=== PATIENT | female | born 1990 | race Caucasian/White ===

== ENCOUNTER 2017-12-16 18:51 | Inpatient (IN) | payer MEDICAID ==
[~2017-12-16] VITALS: Ht 175.3 cm; Wt 90.7 kg
[~2017-12-16 18:51] MED LIST: ACET-3017 PO; CEPH500C24 PO; CYCL10TA29 PO; HYDR-4309 PO; IBUP-56 PO; IBUP600T22 PO; IBUP800T37 PO; KET10 PO; LOR5/325 PO; METH4TAB66 PO; NITR-105 PO; NITR-106 PO; PER PO; PRED20TA6 PO; PREN-127 PO; PROM-110 PO; TRAM-420 PO; TRIA15CR40 TP
[2017-12-16] MEDS ORDERED: LR(*) 1000 ML BAG 1,000 ML IV PRN (18:52)
[2017-12-16 19:06] VITALS: BP 121/80; Ht 175.3 cm; Wt 90.7 kg
[2017-12-16] MEDS ORDERED: LR(*) 1000 ML BAG 1,000 ML ONE (19:49)
[2017-12-16 20:03] LABS: PLATELET COUNT, AUTOMATED 236 K/uL (150-450)
[2017-12-16] MEDS: LR(*) 1000 ML BAG 1,000 ML IV PRN ×2 (20:18→20:44)
[2017-12-16 20:21] LABS: INR 0.95
[2017-12-16] MEDS ORDERED: APAP/HYDROCODONE 325/7.5 TAB PO PRN (21:20)
--- NOTE | 2017-12-16 21:32 | History & Physical ---
History of Present Illness Age of Patient: 26 : 1 Para or TPAL: 0 Estimated Gestational Age: 35.6 Chief Complaint abdominal pain and vaginal bleeding History of Present Illness Presents with report of blood tinged discharge today since this AM and then pains since 6 PM. Has not had thor leaking fluid but the bleeding did turn bright red. Good movement today. History of ectropion cervix and cervical polyp this with some episodes of bleeding earlier in the . She is A positive. Past Medical, Surgical, Family and Obstetric Histories reviewed. Please see ACOG chart. History Patient's Blood Type: A Positive Past Medical History: cervical polyp ADHD iron deficiency Allergies: Coded Allergies: mold (Verified Allergy, Severe, ANAPHYLAXIS, 07/16/17) iodine (Verified Allergy, Intermediate, RASH, 07/16/17) Penicillins (Unverified Allergy, Unknown, 07/16/17) adhesive (Unverified Allergy, Unknown, 07/16/17) latex (Unverified Allergy, Unknown, 07/16/17) Med Rec Home Meds Reported Medications Vits W-Ca,Fe,Fa(<1MG) ( VITAMINS) 1 Each Tablet, 1 EACH PO DAILY, TAB 06/12/17 Review of Systems All Systems Reviewed/Normal: Yes, Except as Noted Gastrointestinal: Abdominal Pain (as per HPI) Exam General Exam General Apperance: Alert/Awake/No Acute Distress Neuro: No Gross deficits Cardiovascular: Regular Rate and Rhythm Respiratory: No Respiratory Distress, Clear to Auscultation : Other (small pooling of bloody mucus, ferning negative) Vaginal Discharge/Fluid?: Bloody Show, Bloody Fluid, Small Amount Cervical Dialation: 0.5 Cervical Effacement (%): 50 Cervical Consistency: Moderate Cervical Position: Posterior Station: -3 Presentation: Vertex Uterine Contractions(Q min): 2 (irritable pattern) Uterine Contraction Strength: Mild Fetus Heart Tone Variabilty: Moderate FHT Accelerations: 15X15 FHT Category: I Medical Decision Making Data Points Result Diagram: 12/16/171949 Hematology Test 12/16/17 19:15 12/16/17 19:50 Urine Color Yellow Urine Clarity Cloudy Urine pH 5.0 pH (4.8-9.5) Urine Specific Allen 1.014 Urine Protein Negative mg/dL (NEGATIVE) Urine Glucose (UA) Negative mg/dL (NEGATIVE) Urine Ketones Negative mg/dL (NEGATIVE) Urine Blood Large (NEGATIVE) Urine Nitrite Negative (NEGATIVE) Urine Bilirubin Negative (NEGATIVE) Urine Urobilinogen Negative mg/dL (0.2-1.9) Urine Leukocyte Esterase Large (NEGATIVE) Urine RBC 84 /HPF (0-2/HPF) Urine WBC 101 /HPF (0-5/HPF) Urine Squamous Epithelial Cells Many /LPF (</=FEW) Urine Bacteria Few /HPF (NONE-FEW) Urine Mucus Few /HPF (NONE-FEW) Red Blood Count 4.94 M/uL (4.17-5.56) Mean Corpuscular Volume 82.0 fL (80.0-96.0) Mean Corpuscular Hemoglobin 27.3 pg (26.0-33.0) Mean Corpuscular Hemoglobin Concent 33.2 g/dL (32.0-36.0) Red Cell Distribution Width 13.2 % (11.5-14.5) Mean Platelet Volume 9.2 fL (7.2-11.1) Neutrophils (%) (Auto) 77.1 % (39.4-72.5) Lymphocytes (%) (Auto) 15.6 % (17.6-49.6) Monocytes (%) (Auto) 6.5 % (4.1-12.4) Eosinophils (%) (Auto) 0.4 % (0.4-6.7) Basophils (%) (Auto) 0.4 % (0.3-1.4) Nucleated RBC Relative Count (auto) 0.0 /100WBC Neutrophils # (Auto) 9.2 K/uL (2.0-7.4) Lymphocytes # (Auto) 1.9 K/uL (1.3-3.6) Monocytes # (Auto) 0.8 K/uL (0.3-1.0) Eosinophils # (Auto) 0.1 K/uL (0.0-0.5) Basophils # (Auto) 0.0 K/uL (0.0-0.1) Nucleated RBC Absolute Count (auto) 0.00 K/uL Prothrombin Time 12.7 seconds (12.0-14.4) Prothromb Time International Ratio 0.95 Activated Partial Thromboplast Time 30 seconds (23-35) Fibrinogen 513 mg/dL (169-449) D-Dimer Quantitative (PE/DVT) 1.27 ug/ml (0-0.50) Chemistry Test 12/16/17 19:15 12/16/17 19:50 Urine Color Yellow Urine Clarity Cloudy Urine pH 5.0 pH (4.8-9.5) Urine Specific Allen 1.014 Urine Protein Negative mg/dL (NEGATIVE) Urine Glucose (UA) Negative mg/dL (NEGATIVE) Urine Ketones Negative mg/dL (NEGATIVE) Urine Blood Large (NEGATIVE) Urine Nitrite Negative (NEGATIVE) Urine Bilirubin Negative (NEGATIVE) Urine Urobilinogen Negative mg/dL (0.2-1.9) Urine Leukocyte Esterase Large (NEGATIVE) Urine RBC 84 /HPF (0-2/HPF) Urine WBC 101 /HPF (0-5/HPF) Urine Squamous Epithelial Cells Many /LPF (</=FEW) Urine Bacteria Few /HPF (NONE-FEW) Urine Mucus Few /HPF (NONE-FEW) White Blood Count 12.0 k/uL (4.5-11.0) Red Blood Count 4.94 M/uL (4.17-5.56) Hemoglobin 13.5 g/dL (12.0-16.0) Hematocrit 40.5 % (34.0-47.0) Mean Corpuscular Volume 82.0 fL (80.0-96.0) Mean Corpuscular Hemoglobin 27.3 pg (26.0-33.0) Mean Corpuscular Hemoglobin Concent 33.2 g/dL (32.0-36.0) Red Cell Distribution Width 13.2 % (11.5-14.5) Platelet Count 236 K/uL (150-450) Mean Platelet Volume 9.2 fL (7.2-11.1) Neutrophils (%) (Auto) 77.1 % (39.4-72.5) Lymphocytes (%) (Auto) 15.6 % (17.6-49.6) Monocytes (%) (Auto) 6.5 % (4.1-12.4) Eosinophils (%) (Auto) 0.4 % (0.4-6.7) Basophils (%) (Auto) 0.4 % (0.3-1.4) Nucleated RBC Relative Count (auto) 0.0 /100WBC Neutrophils # (Auto) 9.2 K/uL (2.0-7.4) Lymphocytes # (Auto) 1.9 K/uL (1.3-3.6) Monocytes # (Auto) 0.8 K/uL (0.3-1.0) Eosinophils # (Auto) 0.1 K/uL (0.0-0.5) Basophils # (Auto) 0.0 K/uL (0.0-0.1) Nucleated RBC Absolute Count (auto) 0.00 K/uL Prothrombin Time 12.7 seconds (12.0-14.4) Prothromb Time International Ratio 0.95 Activated Partial Thromboplast Time 30 seconds (23-35) Fibrinogen 513 mg/dL (169-449) D-Dimer Quantitative (PE/DVT) 1.27 ug/ml (0-0.50) Coagulation Test 12/16/17 19:50 Prothrombin Time 12.7 seconds Prothromb Time International Ratio 0.95 Activated Partial Thromboplast Time 30 seconds Fibrinogen 513 mg/dL D-Dimer Quantitative (PE/DVT) 1.27 ug/ml Urinalysis Test 12/16/17 19:15 Urine Color Yellow Urine Clarity Cloudy Urine pH 5.0 pH (4.8-9.5) Urine Specific Allen 1.014 Urine Protein Negative mg/dL (NEGATIVE) Urine Glucose (UA) Negative mg/dL (NEGATIVE) Urine Ketones Negative mg/dL (NEGATIVE) Urine Blood Large (NEGATIVE) Urine Nitrite Negative (NEGATIVE) Urine Bilirubin Negative (NEGATIVE) Urine Urobilinogen Negative mg/dL (0.2-1.9) Urine Leukocyte Esterase Large (NEGATIVE) Urine RBC 84 /HPF (0-2/HPF) Urine WBC 101 /HPF (0-5/HPF) Urine Squamous Epithelial Cells Many /LPF (</=FEW) Urine Bacteria Few /HPF (NONE-FEW) Urine Mucus Few /HPF (NONE-FEW) Imaging Ultrasound/Imaging In room view of images and verbal report from tech: >3 kilos, normal XAVIER at 11 cm, no placental previa and no sign of rupture; vertex presentation. VTE Prophylasis: Adult Deep Vein Thrombosis/Pulmonary: No Pharmacological Contraindicati: Pt at Low Risk for VTE Mechanical Contraindications: Pt at Low Risk for VTE Assessment and Plan Problems: (1) Threatened labor, antepartum Assessment & Plan: By symptoms it is worrisome that she is either in early labor or AROM. I cannot conclusively determine rupture however with XAVIER of 11 seen on u/s and inconclusive results or unable to run amnisure due to the blood contamination. Therefore I recommend a period of observation and repeat exams to determine if she is in labor or not. Will treat pain tonight and reassess in the AM. KB running still but Im not expecting it to help me as it does not appear to be an abruption. ANGELA NIETO MD Dec 16, 2017 20:43
--- NOTE | 2017-12-16 21:43 | RADIOLOGY IMAGING REPORT ---
FACILITY: [facility] PATIENT NAME: Lesly Nur : 1990 MR: [id number] V: [id number] EXAM DATE: ORDERING PHYSICIAN: ANGELA NIETO TECHNOLOGIST: Location: [facility] Patient: Lesly Nur : 1990 Visit/Account:[id number] Date of Sevice: 12/16/2017 OB LIMITED HISTORY: Vaginal bleeding in . COMPARISON STUDIES: 07/16/2017 and studies dating to 06/12/2017. FINDINGS: Intrauterine gestations: One. presentation: Cephalic. heart rate: Regular at 149 bpm. Amniotic fluid index: 10 point 9 cm. Largest amniotic fluid pocket 4.0 cm. Placenta: Anterior without previa. Placental cord insertion is not demonstrated. No ultrasound eviden ce for abruption. Uterus: Gravid, otherwise normal. Maternal adnexa: Unremarkable. Cervix: Not visible due to shadowing from the head. Gestational Parameters: BPD: 9.1 cm 37 weeks/ 0 days HC: 32.4 cm 36 weeks/ 5 days AC: 33.0 cm 37 weeks/ 0 days FL: 7.1 cm 36 weeks/ 3 days Average ultrasound age (AUA): 36 weeks 6 days Estimated gestational age by LMP of 04/09/2017: 35 weeks 6 days, corresponding to BERTA 01/14/2018 Estimated weight (EFW): 3012 grams +/- 440 grams EFW for AUA: 74 th percentile Anatomic Survey: Not performed as this was a limited examination for vaginal bleeding. There is a normal four-chamber heart view. IMPRESSION: 1. Single live intrauterine gestation; estimated ultrasound age 36 weeks 6 days, corresponding to BERTA 01/07/2018, 7 days ahead of the BERTA based on LMP. 2. Anterior placenta without previa. No ultrasound evidence for abruption. Report Dictated By: Tammy Shin at 12/16/2017 9:33 PM Report E-Signed By: Tammy Shin at 12/16/2017 9:38 PM [id number]
[2017-12-16] MEDS ORDERED: CALC-521 PO (22:16)
[2017-12-17] MEDS ORDERED: CLINDAMYCIN 900 MG/6 ML 900 MG in NS(*) 0.9% 100 ML BAG 100 ML IVPB SCH (03:20)
[2017-12-17] MEDS ORDERED: VANCOMYCIN 1 GM ADDVIAL 1 GM in NS(*) 0.9% 250 ML ADDVAN BAG 250 ML IVPB SCH (03:25)
[2017-12-17] MEDS: fentaNYL CITR 100 MCG/2 ML AMP IVP PRN ×6 (03:29→09:00)
[2017-12-17] MEDS: LR(*) 1000 ML BAG 1,000 ML IV PRN ×2 (03:56→13:56)
[2017-12-17] MEDS: ONDANSETRON 4 MG/2 ML VIAL IVP PRN ×2 (03:56→15:40)
[2017-12-17] MEDS: VANCOMYCIN(*) 1 GM VIAL 2 GM in NS(*) 0.9% 500 ML BAG 500 ML IVPB SCH ×2 (05:16→12:39)
--- NOTE | 2017-12-17 07:35 | Labor Progress Note ---
Labor Subjective Progress Notes Subjective [id number] contractions Labor Pain: Moderate Labor Objective Vital Signs Vital Signs Date Time Temp Pulse Resp B/P (MAP) Pulse Ox O2 Delivery O2 Flow Rate FiO2 12/16/17 19:06 98.4 123 14 121/80 (94) 97 Room Air Cervical Dialation: 2 Cervical Effacement (%): 90 Cervical Consistency: Soft Cervical Position: Mid Station: 0 Presentation: Vertex Uterine Contractions(Q min): 3 Uterine Contraction Strength: Moderate Fetus Heart Tones: 130 FHT Category: I Other Result Diagram: 12/16/171949 Assessment and Plan Problems: (1) Threatened labor, antepartum Assessment & Plan: suspect early labor, will monitor ALLIE Weeks MD Dec 17, 2017 07:35
[2017-12-17] MEDS ORDERED: DLR(*) 1000 ML BAG 1,000 ML IV PRN (07:37)
[2017-12-17] MEDS ORDERED: FAMOTIDINE(*) 20MG/50ML PREMIX 50 ML IVPB PRN (07:37)
[2017-12-17] MEDS ORDERED: METOCLOPRAMIDE 10 MG/2 ML SDV IVP PRN (07:40)
[2017-12-17] MEDS ORDERED: LIDO/EPI 2% MPF 1:200,000 20ML EPI PRN (07:45)
[2017-12-17] MEDS ORDERED: fentaNYL CITR 100 MCG/2 ML AMP IT PRN (07:45)
[2017-12-17] MEDS ORDERED: LIDOCAINE/PF 2% 200MG/10ML AMP 200 MG/10 ML AMPUL EPI PRN (07:45)
[2017-12-17] MEDS ORDERED: BUPIVACAINE 0.5% INJ 30ML VIAL EPI PRN (07:45)
[2017-12-17] MEDS ORDERED: BUPIVACAINE 0.25% MPF INJ EPI PRN (07:45)
[2017-12-17] MEDS ORDERED: FENTANYL/ROPIVACAINE 100 ML BAG EPI PRN (07:45)
[2017-12-17] MEDS ORDERED: EPIDURAL KEYS XX PRN (07:45)
[2017-12-17] MEDS ORDERED: DLR(*) 1000 ML BAG 1,000 ML IV ONE (07:46)
--- NOTE | 2017-12-17 10:23 | Anesthesia OB Pre-Anes Eval ---
History of Present Illness Anesthesia Start Date: Dec 17, 2017 Anesthesia Start Time: 09:24 OB Anesthesia Diagnosis: spontaneous labor EDC: Jan 14, 2018 : 1 Para: 0 Vital Signs: Vital Signs 12/16/17 19:06 Temp 98.4 Pulse 123 Resp 14 B/P (MAP) 121/80 (94) Pulse Ox 97 O2 Delivery Room Air Pain Ratin Heart Tones: 141 Result Diagram: 12/16/17 1950 Height (Inches): 69.00 Weight (Pounds): 200 BMI Calculated: 29.53 Past Medical History Medical History: no pertinent history Surgical History: no surgical history Attended Childbirth Classes?: No Hx Anesthesia Reactions: No Hx Family Anesthesia Reaction: No Current Medications: pain medication Home Meds Reported Medications Calcium Carbonate (TUMS) 300 Mg Tab.chew, 300 MG PO, TAB.CHEW 12/16/17 Vits W-Ca,Fe,Fa(<1MG) ( VITAMINS) 1 Each Tablet, 1 EACH PO DAILY, TAB 06/12/17 Allergies: Coded Allergies: mold (Verified Allergy, Severe, ANAPHYLAXIS, 07/16/17) iodine (Verified Allergy, Intermediate, RASH, 07/16/17) Penicillins (Unverified Allergy, Unknown, 07/16/17) adhesive (Unverified Allergy, Unknown, 07/16/17) latex (Unverified Allergy, Unknown, 07/16/17) Anesthesia OB ROS Neurological: No migraines/headaches, No seizures, No neuropathy, No other ENT: Tongue ring, Other (lip studs) Pulmonary: No asthma, No smoker (pks/day/yrs), No other Airway Class: lll Cardiovascular ROS: No edema, No arrhythmia, No other GI ROS: clear liquids Last Solids Date: Dec 16, 2017 Last Solids Time: 17:00 ROS: No Herpes, No STD(s), No Liver Disease, No Renal Disease, No Other Endocrine ROS: No diabetes, No gestational diabetes, No thyroid disorder, No other Musculoskeletal ROS: No low back pain, No low back injury, No scoliosis, No other ASA Classification: 2 Assessment and Plan Anesthesia Plan: ELIEZER TORRES CRNA Dec 17, 2017 10:23
--- NOTE | 2017-12-17 10:28 | Procedure Note ---
Anesthetic Placement Note Anesthesia Plan: CSE Permit for Anesthesia Signed: Yes Anesthesia Technique: Patient Sitting Anesthesia Prep: Chlorhexidine Interspace: L 3-4 Local Anesthetic: 1% Lidocaine Amount Local - cc's: 3 Anesthesia Needle: 17g Touhy/Schliff Anesthesia Attempts: 1 Loss of Resistance: Normal Saline Depth of VARGHESE (cm): 5 Epidural Needle Placement: No CSF, No Blood, No Parasthesia Intrathecal Needle: 27 Gauge Pencan Cerebral Spinal Fluid: Yes, Clear Catheter Insertion (cm): 9 Catheter Type: Neal - Spring Wound Epidural Dressing: Tegaderm, Tape, Other (papertape) Anesthesia Tray: Lot Number ([id number]), Expiration Date (06/30), Reference Number ([id number]) Anesthesia Medications: Intrathecal Dose: mcg Fentanyl (10), mg Marcaine MPF (2.5), Time (0938) Epidural Test Dose: 1.5 Lido/Epi (1:200,000), Dose - mL (3), Time (0941) Epidural Infusion: 0.2% Ropivicaine, With Fentanyl 2mcg/ml, Start Time: (1002) Epidural Pump Setting: Bolus Dose - mL (6), Lockout - Minutes (20), Maintenance Rate - mL/hr (6), Maximum per Hour - mL (24) Complications: None ELIEZER WEEKS CRNA Dec 17, 2017 10:28
--- NOTE | 2017-12-17 10:40 | Labor Progress Note ---
Labor Subjective Progress Notes Subjective comfortable with epidural Vaginal Discharge/Fluid: Clear Fluid Labor Pain: Comfortable Labor Objective Vital Signs Vital Signs Date Time Temp Pulse Resp B/P (MAP) Pulse Ox O2 Delivery O2 Flow Rate FiO2 12/16/17 19:06 98.4 123 14 121/80 (94) 97 Room Air Cervical Dialation: 4 Cervical Effacement (%): 94 Cervical Consistency: Soft Station: +1 Presentation: Vertex Uterine Contractions(Q min): 3 Uterine Contraction Strength: Moderate Fetus Heart Tones: 140 Heart Tone Variabilty: Moderate FHT Category: I Other Result Diagram: 12/16/171949 Assessment and Plan Problems: (1) Threatened labor, antepartum (2) labor in third trimester Assessment & Plan: has had cervical change is more comfortable with epidural, clear fluid Problem Qualifiers (1) labor in third trimester: Fetus number: single or unspecified fetus ALLIE BECKWITH MD Dec 17, 2017 10:40
[2017-12-17] MEDS ORDERED: OXYTOCIN 30 UNIT/D5LR 500 ML 500 ML IV PRN ×2 (11:07→12:59)
--- NOTE | 2017-12-17 12:30 | Labor Progress Note ---
Labor Subjective Progress Notes Subjective comfortable with epidural Vaginal Discharge/Fluid: Clear Fluid Labor Pain: Comfortable Labor Objective Vital Signs Vital Signs Date Time Temp Pulse Resp B/P (MAP) Pulse Ox O2 Delivery O2 Flow Rate FiO2 12/16/17 19:06 98.4 123 14 121/80 (94) 97 Room Air Cervical Dialation: 4 Cervical Effacement (%): 100 Cervical Consistency: Soft Cervical Position: Mid Station: +1 Presentation: Vertex Fetus Estimated Weight(grams): 140 FHT Category: I Other Result Diagram: 12/16/17 1950 Assessment and Plan Problems: (1) Threatened labor, antepartum (2) labor in third trimester Assessment & Plan: unable to monitor contractions externally, IUPC placed Problem Qualifiers (1) labor in third trimester: Fetus number: single or unspecified fetus ALLIE BECKWITH MD Dec 17, 2017 12:30
[2017-12-17] MEDS ORDERED: TERBUTALINE SULF 1 MG/ML VIAL SUBQ PRN (13:00)
[2017-12-17] MEDS ORDERED: NS(*) 0.9% 1000 ML BAG 1,000 ML PV PRN (14:39)
[2017-12-17] MEDS ORDERED: NS(*) 0.9% 1000 ML BAG 1,000 ML ONE (14:46)
[2017-12-17] MEDS ORDERED: METHYLERGONOVINE MAL 0.2MG/ML ONE (16:04)
[2017-12-17] MEDS ORDERED: HYDROmorphone HCL 2 MG TAB PO PRN (16:15)
[2017-12-17] MEDS ORDERED: MAGNESIUM HYDROXIDE* 30ML UDCP PO PRN (16:15)
[2017-12-17] MEDS ORDERED: ACETAMINOPHEN 325 MG TAB PO PRN (16:15)
[2017-12-17] MEDS ORDERED: HYDROCORTISONE 2.5% CR 30GM TB PR PRN (16:15)
[2017-12-17] MEDS ORDERED: LANOLIN OINT 7 GM TUBE TP PRN (16:15)
--- NOTE | 2017-12-17 16:17 | OB Delivery Note ---
Delivery Note Vaginal Delivery Type: Spont. Vaginal Delivery Delivery Date: Dec 17, 2017 Delivery Time: 15:50 Estimated Gestational Age(wks): 36.0 Delivery Anesthesia: Epidural Infant Sex: Female Weight (gms): 2604 Apgars: 1 Minute (8), 5 Minute (8) Repair Needed: Laceration, Superficial, Labial Estimated Blood Loss: 400 Notes: pprom, ab pain, early PTL progressed to 3 cm, received epidural and then augmented when slowed progress. progressed to complete, pushed effectively delivered without complications, superficial lacs repaired with3-0 vicryl Bus Matron in Attendence: No Copies to: ALLIE BECKWITH MD, JOHN MD Dec 17, 2017 16:17
--- NOTE | 2017-12-17 16:22 | Anesthesia Progress Note ---
Progress/Maintenance Anesthesia Note Date: Dec 17, 2017 Anesthesia Note Time: 13:00 Pain Intensity: 0 Pump: On Pump Rate (ML/HR): 6 Motor Level: Bending Knees-Bilateral Dilatation: 7 Position: Right ELIEZER WEEKS CRNA Dec 17, 2017 16:22
--- NOTE | 2017-12-17 16:23 | Anesthesia Progress Note ---
Assessment and Plan Anesthesia Plan: CSE Anesthesia Stop Day: Dec 17, 2017 Anesthesia Stop Time: 16:05 Epidural Catheter Removal: Removed Catheter Intact, Yes, Removed by: (Namrata HE) Removal Date: Dec 17, 2017 Removal Time: 16:20 Condition Vital Signs 12/16/17 19:06 Temp 98.4 Pulse 123 Resp 14 B/P (MAP) 121/80 (94) Pulse Ox 97 O2 Delivery Room Air ELIEZER WEEKS CRNA Dec 17, 2017 16:23
[2017-12-17] MEDS ORDERED: IBUPROFEN 800 MG TAB PO SCH (17:00)
[2017-12-17] MEDS ORDERED: OXYTOCIN 10 UNIT/ML SDV ONE (17:16)
[2017-12-17 19:00] VITALS: BP 110/76
[2017-12-17] MEDS: BENZOCAINE 20% 60 ML BTL TP PRN (19:22)
[2017-12-17] MEDS: GLYCERIN/WITCH HAZEL LEAF 1 PK TP PRN (19:22)
[2017-12-17] MEDS: DOCUSATE CALCIUM 240 MG CAP PO SCH (20:23)
[2017-12-17 23:10] VITALS: BP 115/66
[2017-12-18] VITALS (7 sets, daily range): BP systolic 100–119; BP diastolic 58–70
[2017-12-18] MEDS: IBUPROFEN 800 MG TAB PO SCH ×3 (03:03→20:52)
--- NOTE | 2017-12-18 08:40 | OB/GYN Progress Note ---
OB Subjective Progress Notes Subjective Pain controlled, Tolerating diet and activity. Baby . Normal lochia. GI: POS Flatus, NEG Nausea, NEG Vomiting : Voiding Well Pain: Mild OB Objective Physical Exam Vital Signs Date Time Temp Pulse Resp B/P (MAP) Pulse Ox O2 Delivery O2 Flow Rate FiO2 12/18/17 07:32 98.1 77 18 107/60 (76) 12/18/17 03:00 Room Air 12/17/17 19:00 97 General Appearance: Alert/Awake/No Acute Distress Neurological: No Gross deficits Cardiovascular: Regular Rate and Rhythm Respiratory: No Respiratory Distress, Clear to Auscultation Abdomen: Fundus Firm Extremities: No Edema Result Diagram: 12/18/17 0619 Assessment and Plan Problems: (1) Threatened labor, antepartum (2) labor in third trimester (3) care following vaginal delivery Assessment & Plan: Pain controlled, Tolerating diet and activity. Baby . Normal lochia. Copies to: ALLIE BECKWITH MD Problem Qualifiers (1) labor in third trimester: Fetus number: single or unspecified fetus ALLIE BECKWITH MD Dec 18, 2017 08:40
[2017-12-18] MEDS ORDERED: IBUP800T37 PO (08:54)
[2017-12-18] MEDS ORDERED: HYDR2TAB4 PO (08:54)
--- NOTE | 2017-12-18 08:56 | OB/GYN Discharge Summary ---
Discharge Summary Reason for Hosp/Final Diag: (1) Threatened labor, antepartum (2) labor in third trimester (3) care following vaginal delivery Hospital Course & Plan: PTL and delivery, on day 2, Pain controlled, Tolerating diet and activity. Baby . Normal lochia. Lates Vital Signs Vital Signs Date Time Temp Pulse Resp B/P (MAP) Pulse Ox O2 Delivery O2 Flow Rate FiO2 12/18/17 07:32 98.1 77 18 107/60 (76) 12/18/17 03:00 Room Air 12/17/17 19:00 97 Weight (Pounds): 200 Result Diagram: 12/18/17618 Condition: Improved Discharge: Home, Self Senior Care Meds Active Scripts Ibuprofen (IBUPROFEN) 800 Mg Tablet, 1 TAB PO Q8H, #30 TAB 0 Refills Take with food every 8 hours. Prov:ALLIE STOLL MD 12/18/17 Hydromorphone Hcl (HYDROMORPHONE HCL) 2 Mg Tablet, 2-4 MG PO Q4H for PAIN, #20 TAB 0 Refills Prov:ALLIE STOLL MD 12/18/17 Reported Medications Calcium Carbonate (TUMS) 300 Mg Tab.chew, 300 MG PO, TAB.CHEW 12/16/17 Vits W-Ca,Fe,Fa(<1MG) ( VITAMINS) 1 Each Tablet, 1 EACH PO DAILY, TAB 06/12/17 Follow up with: Dr. Stoll [phone] Follow up in: 6 wks PP or PO Discharge Diet: As Tolerates Discharge Activity: Pelvic Rest Copies to: ALLIE STOLL MD Problem Qualifiers (1) labor in third trimester: Fetus number: single or unspecified fetus ALLIE STOLL MD Dec 18, 2017 08:56
[2017-12-18] MEDS ORDERED: DIPHTH/TETANUS/ACEL. PERTUSSIS IM ONLY ONE (09:00)
[2017-12-18] MEDS ORDERED: INFLUENZA VIRUS VAC 0.5 ML SYR IM ONLY ONE (09:00)
[2017-12-18] MEDS ORDERED: MEASLES,MUMP,RUBELLA VAC 0.5ML SUBQ ONE (09:00)
--- NOTE | 2017-12-18 12:53 | Anesthesia Post Eval Note ---
Anesthesia Post Eval Note Vital Signs 12/17/17 12/18/17 12/18/17 19:00 03:00 07:32 Temp 98.1 Pulse 77 Resp 18 B/P (MAP) 107/60 (76) Pulse Ox 97 O2 Delivery Room Air Pt able to participate in Eval: Yes Cardiovascular Status: Satisfactory Respiratory Status: Satisfactory Pain Managment: Satisfactory PO Nausea/Vomiting: Satisfactory Temperature Management: Satisfactory Mental Status: Satisfactory, Alert, Oriented X3 Post-Op Hydration Status: Satisfactory, Tolerating PO Well, Voiding w/o Difficulty Anesthesia Type: ELIEZER TORRES CRNA Dec 18, 2017 12:53
[2017-12-18] MEDS: DOCUSATE CALCIUM 240 MG CAP PO SCH ×2 (12:57→20:52)
[2017-12-18] MEDS: MULTIVITAMINS (PRENATAL) TAB PO SCH (12:57)
[2017-12-19 02:30] VITALS: BP 113/69
[2017-12-19] MEDS: IBUPROFEN 800 MG TAB PO SCH (04:25)
--- NOTE | 2017-12-19 07:08 | OB/GYN Progress Note ---
OB Subjective Progress Notes Subjective Doing good this morning. Reports lochia appropriate. Tolerating PO intake. Voiding with out any difficulty. Breast and bottle feeding. Pain controlled with po intake. Desires to be discharged home if given the opportunity. GI: NEG Nausea, NEG Vomiting, NEG Flatus, NEG Bowel Movement : Voiding Well, Vaginal Bleeding, Scant Pain: Mild, Tolerating PO Pain Meds Neurological: No Headache, No Other Eyes: No Visual Disturbances OB Objective Physical Exam Vital Signs Date Time Temp Pulse Resp B/P (MAP) Pulse Ox O2 Delivery O2 Flow Rate FiO2 12/19/17 02:30 97.6 81 16 113/69 (84) 12/18/17 22:50 Room Air 12/17/17 19:00 97 General Appearance: Alert/Awake/No Acute Distress Neurological: No Gross deficits Eyes: Normal Extraocular Movement & Vison, PERRLA ENT: Normal Neck: No Masses Cardiovascular: Normal Rhythm & Peripheral Pulses, Regular Rate and Rhythm Respiratory: No Respiratory Distress, Clear to Auscultation Abdomen: Fundus Firm, Non-Tender Extremities: No Edema Result Diagram: 12/18/17 0619 Assessment and Plan PRODUCTION LINE OPERATOR Assessment: Stable Problems: (1) Threatened labor, antepartum Status: Resolved (2) labor in third trimester Status: Resolved (3) care following vaginal delivery Assessment & Plan: Plan for d/c home today. Pelvic rest cautions given. RTC in 6 weeks for post exam. Problem Qualifiers (1) labor in third trimester: Fetus number: single or unspecified fetus DINAH MONTERROSO DO Dec 19, 2017 07:08
[2017-12-19 07:15] VITALS: BP 128/81
[2017-12-19] MEDS: BENZOCAINE 20% 60 ML BTL TP PRN (07:16)
[2017-12-19] MEDS: GLYCERIN/WITCH HAZEL LEAF 1 PK TP PRN (07:16)
[2017-12-19] MEDS: DOCUSATE CALCIUM 240 MG CAP PO SCH (08:52)
[2017-12-19] MEDS: MULTIVITAMINS (PRENATAL) TAB PO SCH (08:52)
== END 2017-12-19 10:34 | disposition home or self-care (01) | DRG 775 ==
LOC: OBSVTOIN 18:51 → OB 18:51
PROVIDERS: ADMIT Obstetrics & Gynecology; ATTEND Obstetrics & Gynecology
PROC: 10E0XZZ Delivery of Products of Conception, External Approach (ICD-10-PCS; principal; 2017-12-17)
PROC: 0HQ9XZZ Repair Perineum Skin, External Approach (ICD-10-PCS; 2017-12-17)
PROC: 10H07YZ Insertion of Other Device into Products of Conception, Via Natural or Artificial Opening (ICD-10-PCS; 2017-12-17)
DX: O60.14X0 Preterm labor third trimester with preterm delivery third trimester, not applicable or unspecified (principal); Z37.0 Single live birth; O70.0 First degree perineal laceration during delivery; O99.62 Diseases of the digestive system complicating childbirth; Z3A.35 35 weeks gestation of pregnancy; N86 Erosion and ectropion of cervix uteri; O99.89 Other specified diseases and conditions complicating pregnancy, childbirth and the puerperium; D50.9 Iron deficiency anemia, unspecified; O99.02 Anemia complicating childbirth; J30.1 Allergic rhinitis due to pollen; O99.52 Diseases of the respiratory system complicating childbirth; F90.9 Attention-deficit hyperactivity disorder, unspecified type; O99.344 Other mental disorders complicating childbirth; Z88.0 Allergy status to penicillin; Z88.8 Allergy status to other drugs, medicaments and biological substances; Z91.040 Latex allergy status; Z91.048 Other nonmedicinal substance allergy status; Z87.410 Personal history of cervical dysplasia; Z91.018 Allergy to other foods; Z87.440 Personal history of urinary (tract) infections; Z90.89 Acquired absence of other organs; Z62.819 Personal history of unspecified abuse in childhood; K21.9 Gastro-esophageal reflux disease without esophagitis
CPT/HCPCS: 36415; 76815; 81001; 85025; 85027; 85379; 85384; 85460; 85610; 85730; 86850; 86900; 86901; 87081; J2210; J2405; J2590; J3010; J3370; J7030; J7040; J7120; S0020

== ENCOUNTER 2018-01-11 19:45 | Emergency (ER) | payer MEDICAID ==
[2017-12-16 19:06] VITALS: Wt 83.9 kg
[~2018-01-11 19:45] MED LIST changes: +CALC-521 PO; +HYDR2TAB4 PO
--- NOTE | 2018-01-11 20:11 | ER Report ---
History and Physical Time Seen By MD: 19:55 Hx. of Stated Complaint: pt reports pressure R side face and behind R eye; blurriness of vision looking to R side, seeing spots HPI/ROS CHIEF COMPLAINT: Visual changes HISTORY OF PRESENT ILLNESS: This is a 27-year-old female who presents to the emergency department for visual changes. Patient states that about 2 hours ago she had some spots in her right eye that this waxed and waned then she began to develop some blurry vision in the right eye. Then she developed some pressure behind the right eye, increased pressure when she looks to the right. Patient also states that now she is developed a headache. Patient does have a history of migraine headaches however she states this is not the typical migraine headache pattern. Patient is status post vaginal delivery 3 weeks ago. No complications during the delivery or . Patient denies aches, chills, nausea, vomiting, diarrhea, chest pain or shortness of breath. REVIEW OF SYSTEMS: Constitutional: No fever, no chills. Eyes: As above. ENT: No sore throat. Cardiovascular: No chest pain, no palpitations. Respiratory: No cough, no shortness of breath. Gastrointestinal: No abdominal pain, no vomiting. Genitourinary: No hematuria. Musculoskeletal: No back pain. Skin: No rashes. Neurological: As above. Allergies: Coded Allergies: mold (Verified Allergy, Severe, ANAPHYLAXIS, 07/16/17) iodine (Verified Allergy, Intermediate, RASH, 07/16/17) Penicillins (Unverified Allergy, Unknown, 07/16/17) adhesive (Unverified Allergy, Unknown, 07/16/17) latex (Unverified Allergy, Unknown, 07/16/17) Home Meds Active Scripts Ibuprofen (IBUPROFEN) 800 Mg Tablet, 1 TAB PO Q8H, #30 TAB 0 Refills Take with food every 8 hours. Prov:ALLIE BECKWITH MD 12/18/17 Discontinued Reported Medications Calcium Carbonate (TUMS) 300 Mg Tab.chew, 300 MG PO, TAB.CHEW 12/16/17 Vits W-Ca,Fe,Fa(<1MG) ( VITAMINS) 1 Each Tablet, 1 EACH PO DAILY, TAB 06/12/17 Discontinued Scripts Hydromorphone Hcl (HYDROMORPHONE HCL) 2 Mg Tablet, 2-4 MG PO Q4H for PAIN, #20 TAB 0 Refills Prov:ALLIE BECKWITH MD 12/18/17 Past Medical/Surgical History Patient has no significant past medical surgical history. . Reviewed Nurses Notes: Yes Hx Smoking: Yes Smoking Status: Former Smoker Exposure to Second Hand Smoke?: Yes Hx Substance Use Disorder: No Hx Alcohol Use: Yes (occ) Constitutional Vital Sign - Last 24 Hours 01/11/18 01/11/18 01/11/18 01/11/18 19:45 19:50 19:51 20:00 Temp 98.0 Pulse ??? 105 96 Resp 14 B/P (MAP) 115/79 (91) 115/79 Pulse Ox 94 95 O2 Delivery Room Air 01/11/18 01/11/18 01/11/18 20:15 20:29 20:30 Pulse 95 90 B/P (MAP) 107/67 (80) Pulse Ox 96 96 Physical Exam General Appearance: The patient is alert, has no immediate need for airway protection and no signs of toxicity. Eyes: Pupils equal and round no pallor or injection. EOM's intact, no horizontal or vertical nystagmus. No obvious clots or deformities during fundus exam. Tonopen pressure 21 on right, 20 on left. No corneal abrasion on wade lamp exam. Right Eye OD Left Eye OS LLL- Lids, lashes, lacrimals (No lesion) (No lesion) C/S- conjunctiva, sclera (white and clear) (white and clear) K- Cornea (no Fluorescein uptake) (no Fluorescein uptake) AC- anterior chamber I- Iris (Round and reactive) (Round and reactive) L- Lens (clear) (clear) VA- Visual acuity (20/25) (20/25) IOP- Intraocular pressure (21) (20) EOM- Extraocular movments (intact) (intact) Retina (sharp disc margins) (sharp disc margins) ENT, Mouth: Mucous membranes are moist. Respiratory: There are no retractions, lungs are clear to auscultation. Cardiovascular: Regular rate and rhythm. Gastrointestinal: Abdomen is soft and non tender, no masses, bowel sounds normal. Neurological: Alert and oriented 4. Moving all extremities. No focal neuro deficits. Following all commands. Skin: Warm and dry, no rashes. Musculoskeletal: Neck is supple non tender. Extremities are nontender, nonswollen and have full range of motion. DIFFERENTIAL DIAGNOSIS: After history and physical exam differential diagnosis was considered for tumor, malignancy, sinusitis, and atypical migraine. Medical Decision Making Data Points Result Diagram: 01/11/18202701/11/182027 Laboratory Hematology Test 01/11/18 20:28 Red Blood Count 5.04 M/uL (4.17-5.56) Mean Corpuscular Volume 82.2 fL (80.0-96.0) Mean Corpuscular Hemoglobin 28.0 pg (26.0-33.0) Mean Corpuscular Hemoglobin Concent 34.0 g/dL (32.0-36.0) Red Cell Distribution Width 13.7 % (11.5-14.5) Mean Platelet Volume 8.3 fL (7.2-11.1) Neutrophils (%) (Auto) 53.6 % (39.4-72.5) Lymphocytes (%) (Auto) 35.7 % (17.6-49.6) Monocytes (%) (Auto) 7.4 % (4.1-12.4) Eosinophils (%) (Auto) 2.7 % (0.4-6.7) Basophils (%) (Auto) 0.6 % (0.3-1.4) Nucleated RBC Relative Count (auto) 0.1 /100WBC Neutrophils # (Auto) 2.9 K/uL (2.0-7.4) Lymphocytes # (Auto) 1.9 K/uL (1.3-3.6) Monocytes # (Auto) 0.4 K/uL (0.3-1.0) Eosinophils # (Auto) 0.1 K/uL (0.0-0.5) Basophils # (Auto) 0.0 K/uL (0.0-0.1) Nucleated RBC Absolute Count (auto) 0.00 K/uL Sodium Level 143 mmol/L (137-145) Potassium Level 3.6 mmol/L (3.5-5.0) Chloride Level 103 mmol/L (98-107) Carbon Dioxide Level 24 mmol/L (22-31) Blood Urea Nitrogen 8 mg/dl (7-18) Creatinine 0.90 mg/dl (0.52-1.04) Glomerular Filtration Rate Calc > 60.0 Random Glucose 93 mg/dl (75-110) Calcium Level 8.5 mg/dl (8.4-10.2) Total Bilirubin 0.2 mg/dl (0.2-1.3) Aspartate Amino Transf (AST/SGOT) 16 U/L (0-35) Alanine Aminotransferase (ALT/SGPT) 28 U/L (0-56) Alkaline Phosphatase 88 U/L (0-126) Total Protein 7.0 gm/dl (6.3-8.2) Albumin 3.6 g/dl (3.5-5.0) Chemistry Test 01/11/18 20:28 White Blood Count 5.4 k/uL (4.5-11.0) Red Blood Count 5.04 M/uL (4.17-5.56) Hemoglobin 14.1 g/dL (12.0-16.0) Hematocrit 41.4 % (34.0-47.0) Mean Corpuscular Volume 82.2 fL (80.0-96.0) Mean Corpuscular Hemoglobin 28.0 pg (26.0-33.0) Mean Corpuscular Hemoglobin Concent 34.0 g/dL (32.0-36.0) Red Cell Distribution Width 13.7 % (11.5-14.5) Platelet Count 248 K/uL (150-450) Mean Platelet Volume 8.3 fL (7.2-11.1) Neutrophils (%) (Auto) 53.6 % (39.4-72.5) Lymphocytes (%) (Auto) 35.7 % (17.6-49.6) Monocytes (%) (Auto) 7.4 % (4.1-12.4) Eosinophils (%) (Auto) 2.7 % (0.4-6.7) Basophils (%) (Auto) 0.6 % (0.3-1.4) Nucleated RBC Relative Count (auto) 0.1 /100WBC Neutrophils # (Auto) 2.9 K/uL (2.0-7.4) Lymphocytes # (Auto) 1.9 K/uL (1.3-3.6) Monocytes # (Auto) 0.4 K/uL (0.3-1.0) Eosinophils # (Auto) 0.1 K/uL (0.0-0.5) Basophils # (Auto) 0.0 K/uL (0.0-0.1) Nucleated RBC Absolute Count (auto) 0.00 K/uL Glomerular Filtration Rate Calc > 60.0 Calcium Level 8.5 mg/dl (8.4-10.2) Total Bilirubin 0.2 mg/dl (0.2-1.3) Aspartate Amino Transf (AST/SGOT) 16 U/L (0-35) Alanine Aminotransferase (ALT/SGPT) 28 U/L (0-56) Alkaline Phosphatase 88 U/L (0-126) Total Protein 7.0 gm/dl (6.3-8.2) Albumin 3.6 g/dl (3.5-5.0) EKG/Imaging Imaging CT Head without contrast and CT sinuses Indication: Sudden onset pressure behind right eye, headache. Comparison: None available. Technique: CT head: Axial CT images were obtained through the brain from the skull base to the vertex without administration of IV contrast. Technique: CT sinuses: Axial CT images are obtained through the facial bones. Reformatted coronal and sagittal images were reviewed. One of the following dose optimization techniques was utilized in the performance of this exam: Automated exposure control; adjustment of the mA and/ or kV according to the patient's size; or use of an iterative reconstruction technique. Specific details can be referenced in the facility's radiology CT exam operational policy. FINDINGS: CT head: No evidence of mass, mass effect, or midline shift. No acute intracranial hemorrhage or acute territorial infarction. No skull fracture. CT sinuses: Paranasal sinuses and mastoid air spaces are clear. No acute fracture of the facial bones. Globes and orbits are grossly normal. Soft tissues are unremarkable. IMPRESSION: 1. No acute intracranial abnormality. 2. Clear paranasal sinuses. Report Dictated By: Leandro Shell MD at 01/11/2018 9:10 PM Report E-Signed By: Leandro Shell MD at 01/11/2018 9:18 PM WSN:[id number] Location: [facility] [place] Patient: Lesly Nur : 1990 Visit/Account:[id number] Date of Sevice: 01/11/2018 CT Head without contrast and CT sinuses Indication: Sudden onset pressure behind right eye, headache. Comparison: None available. Technique: CT head: Axial CT images were obtained through the brain from the skull base to the vertex without administration of IV contrast. Technique: CT sinuses: Axial CT images are obtained through the facial bones. Reformatted coronal and sagittal images were reviewed. One of the following dose optimization techniques was utilized in the performance of this exam: Automated exposure control; adjustment of the mA and/ or kV according to the patient's size; or use of an iterative reconstruction technique. Specific details can be referenced in the facility's radiology CT exam operational policy. FINDINGS: CT head: No evidence of mass, mass effect, or midline shift. No acute intracranial hemorrhage or acute territorial infarction. No skull fracture. CT sinuses: Paranasal sinuses and mastoid air spaces are clear. No acute fracture of the facial bones. Globes and orbits are grossly normal. Soft tissues are unremarkable. IMPRESSION: 1. No acute intracranial abnormality. 2. Clear paranasal sinuses. Report Dictated By: Leandro Shell MD at 01/11/2018 9:10 PM Report E-Signed By: Leandro Shell MD at 01/11/2018 9:18 PM WSN:[id number] ED Course/Re-evaluation ED Course The patient was admitted to room. A history and physical were obtained. Differential diagnoses were considered. A CBC, CMP, ESR were obtained. Lab studies unremarkable. At the time of patient's discharge the ESR has not resulted. I did tell the patient that we will contact her if the ESR is elevated. She states she is ready to go home. Patient had a head and sinus CT which were negative. Patient was given a gram of Tylenol in the emergency department. I did tell the patient that I think that this is an atypical migraine. Patient did state that the visual disturbances have completely resolved but does have a migraine type of headache now. I did tell the patient that she still needs to follow-up with ophthalmology tomorrow. She may need follow-up with neurology for these headaches. Patient was in agreement with this plan of care and discharged home. Patient states she'll take her migraine medication which she gets home. Decision to Disposition Date: Jan 11, 2018 Decision to Disposition Time: 21:27 Depart Departure Latest Vital Signs Vital Signs Date Time Temp Pulse Resp B/P (MAP) Pulse Ox O2 Delivery O2 Flow Rate FiO2 01/11/18 20:30 90 96 01/11/18 20:29 107/67 (80) 01/11/18 19:51 98.0 14 Room Air Impression: Primary Impression: Atypical migraine Condition: Improved Disposition: HOME OR SELF-CARE Referrals: [facility] OD Patient Instructions: Migraine Headache (ED), Ocular Migraine (ED), Visual Floaters (ED) Additional Instructions: Drink plenty of fluids. Get plenty of rest. Follow-up with [facility] (Dr. Ellsworth) tomorrow for further evaluation of your visual changes, even though they have resolved. Get home ahead and take your Migraine medication. Return to the ED for any other concerns or worsening symptoms. ALDAIR MORSE CUSTOM APPLICATOR-BC Jan 11, 2018 20:11
[2018-01-11] MEDS ORDERED: FLUORESCEIN SOD 1 MG 1 EA STRP OD ONE (20:15)
[2018-01-11] MEDS ORDERED: PROPARACAINE 0.5% OP 15ML BTL OD ONE (20:15)
[2018-01-11 20:36] LABS: PLATELET COUNT, AUTOMATED 248 K/uL (150-450)
[2018-01-11] MEDS ORDERED: ACETAMINOPHEN 500 MG TAB PO ONE (21:05)
--- NOTE | 2018-01-11 21:23 | RADIOLOGY IMAGING REPORT ---
[place] [facility] [place]: Lesly Nur : 1990 MR: [id number] V: [id number] EXAM DATE: ORDERING PHYSICIAN: ALDAIR MORSE TECHNOLOGIST: Location: Patient: Lesly Nur : 1990 Visit/Account:[id number] Date of Sevice: 01/11/2018 CT Head without contrast and CT sinuses Indication: Sudden onset pressure behind right eye, headache. Comparison: None available. Technique: CT head: Axial CT images were obtained through the brain from the skull base to the verte x without administration of IV contrast. Technique: CT sinuses: Axial CT images are obtained through the facial bones. Reformatted coronal and sagittal images were reviewed. One of the following dose optimization techniques was utilized in the performance of this exam: Autom ated exposure control; adjustment of the mA and/or kV according to the patient's size; or use of an i terative reconstruction technique. Specific details can be referenced in the facility's radiology C T exam operational policy. FINDINGS: CT head: No evidence of mass, mass effect, or midline shift. No acute intracranial hemorrhage or acute territorial infarction. No skull fracture. CT sinuses: Paranasal sinuses and mastoid air spaces are clear. No acute fracture of the facial bones. Globes and orbits are grossly normal. Soft tissues are unremarkable. IMPRESSION: 1. No acute intracranial abnormality. 2. Clear paranasal sinuses. Report Dictated By: Leandro Shell MD at 01/11/2018 9:10 PM Report E-Signed By: Leandro Shell MD at 01/11/2018 9:18 PM WSN:[id number]
--- NOTE | 2018-01-11 21:23 | RADIOLOGY IMAGING REPORT ---
FACILITY: [facility] - [place] PATIENT NAME: Lesly Nur : 1990 MR: [id number] V: [id number] EXAM DATE: ORDERING PHYSICIAN: ALDAIR MORSE TECHNOLOGIST: Location: [facility] [place] Patient: Lesly Nur : 1990 Visit/Account:[id number] Date of Sevice: 01/11/2018 CT Head without contrast and CT sinuses Indication: Sudden onset pressure behind right eye, headache. Comparison: None available. Technique: CT head: Axial CT images were obtained through the brain from the skull base to the verte x without administration of IV contrast. Technique: CT sinuses: Axial CT images are obtained through the facial bones. Reformatted coronal and sagittal images were reviewed. One of the following dose optimization techniques was utilized in the performance of this exam: Autom ated exposure control; adjustment of the mA and/or kV according to the patient's size; or use of an i terative reconstruction technique. Specific details can be referenced in the facility's radiology C T exam operational policy. FINDINGS: CT head: No evidence of mass, mass effect, or midline shift. No acute intracranial hemorrhage or acute territorial infarction. No skull fracture. CT sinuses: Paranasal sinuses and mastoid air spaces are clear. No acute fracture of the facial bones. Globes and orbits are grossly normal. Soft tissues are unremarkable. IMPRESSION: 1. No acute intracranial abnormality. 2. Clear paranasal sinuses. Report Dictated By: Leandro Shell MD at 01/11/2018 9:10 PM Report E-Signed By: Leandro Shell MD at 01/11/2018 9:18 PM WSN:[id number]
[2018-01-11 21:39] VITALS: BP 108/72
== END 2018-01-11 21:45 | disposition home or self-care (01) ==
LOC: ER 19:52
DX: G43.909 Migraine, unspecified, not intractable, without status migrainosus (principal)
CPT/HCPCS: 36415; 70450; 70486; 82040; 82247; 82310; 82374; 82435; 82565; 82947; 84075; 84132; 84155; 84295; 84450; 84460; 84520; 85025; 85651; 99283

== ENCOUNTER 2018-03-10 00:03 | Day surgery (SDC) | payer MEDICAID ==
[2017-12-16 19:06] VITALS: Ht 175.3 cm; Wt 88.0 kg
[2018-03-10] VITALS (10 sets, daily range): BP systolic 104–123; BP diastolic 72–91
[~2018-03-10] VITALS: Ht 175.3 cm; Wt 88.0 kg
[~2018-03-10 00:03] MED LIST changes: +ACET-2146 PO; +OMEP-137 PO
--- NOTE | 2018-03-10 04:04 | HISTORY AND PHYSICAL ---
DATE OF ADMISSION: March 10, 2018 CHIEF COMPLAINT Undesired fertility. HISTORY OF PRESENT ILLNESS Patient is a 26-year-old 1 with undesired fertility. She had delivery on December 17, 2017 after discussion of risks and alternatives for contraception, she desired infertility. Discussed risks of procedure as well as risks of failure, and patient wished to proceed with laparoscopic bilateral tubal ligation. MEDICATIONS vitamins. ALLERGIES PENICILLIN. REVIEW OF SYSTEMS Genitourinary as per HPI. General, skin, eyes, ears, nose, mouth, neck, respiratory, cardiovascular, gastrointestinal, musculoskeletal all reviewed and noncontributory. PAST SURGICAL HISTORY None. SOCIAL HISTORY Drinks occasionally. She is a nonsmoker, no illicit drug use. FAMILY HISTORY Maternal aunt with breast cancer and grandmother with breast cancer. Grandfather with kidney disease. PHYSICAL EXAMINATION VITAL SIGNS: BP 102/60, temperature 97.1, weight 194. GENERAL: Well-nourished, well-developed female in no distress. SKIN: Without rash or lesions. NECK: Supple without masses. HEART: Regular rate and rhythm. LUNGS: Clear to auscultation bilaterally. ABDOMEN: Soft, nontender, nondistended. Bowel sound positive. EXTREMITIES: Nontender, no edema. PSYCH: Alert and oriented x three. Normal mood and affect. PELVIC: Normal external female genitalia. Well estrogenized vaginal lining. Cervix without lesions, normal discharge. Uterus 6 x 5 cm. No adnexal masses or tenderness. ASSESSMENT AND PLAN Undesired fertility. plan to perform laparoscopic bilateral tubal ligation. [facility]
[2018-03-10 06:26] LABS: PLATELET COUNT, AUTOMATED 270 K/uL (150-450)
[2018-03-10] MEDS ORDERED: NORMOSOL R SOLN(*) 1000 ML BAG 1,000 ML IV PRN (06:30)
[2018-03-10] MEDS ORDERED: CELECOXIB 200 MG CAP PO ONE (06:30)
[2018-03-10] MEDS ORDERED: HYDROmorphone HCL 2 MG TAB PO ONE (06:30)
[2018-03-10] MEDS ORDERED: cefOXitin SOD 2 GM VIAL 2 GM in NS(*) 0.9% 100 ML BAG 100 ML IVPB ONE (06:30)
[2018-03-10] MEDS ORDERED: MIDAZOLAM 2 MG/2 ML VIAL IVP PRN (06:30)
[2018-03-10] MEDS ORDERED: LIDOCAINE/SOD BICARB 8.4% SYR ID ONE (06:30)
[2018-03-10] MEDS ORDERED: ROPIVACAINE 0.2% 20 ML VIAL ONE (06:35)
[2018-03-10] MEDS ORDERED: ONDANSETRON 4 MG/2 ML VIAL ONE (06:45)
[2018-03-10] MEDS ORDERED: PROPOFOL EMUL(*) 10MG/ML 20 ML 20 ML ONE (06:45)
[2018-03-10] MEDS ORDERED: DEXAMETHASONE SOD PHOS 10MG/ML ONE (06:45)
[2018-03-10] MEDS ORDERED: fentaNYL CITR 100 MCG/2 ML AMP ONE ×4 (06:45→08:42)
[2018-03-10] MEDS ORDERED: LIDOCAINE MPF 1% 5 ML VIAL ONE (06:45)
[2018-03-10] MEDS ORDERED: diphenhydrAMINE 50 MG/ML VIAL ONE (06:46)
[2018-03-10] MEDS ORDERED: SUGAMMADEX SOD 200 MG/2 ML SDV ONE (06:53)
[2018-03-10] MEDS ORDERED: ROCURONIUM BROM 10 MG/ML 5 ML ONE (07:30)
[2018-03-10] MEDS ORDERED: NS 0.9% IRRIGATION 1000ML PLCT IR ONE (08:12)
[2018-03-10] MEDS ORDERED: LR(*) 1000 ML BAG 1,000 ML IV ONE (08:19)
--- NOTE | 2018-03-10 08:19 | Post Operative Note ---
Operative Note - SEAL EXTRUSION OPERATOR Operative Day Date: March 10, 2018 Time: 08:04 Physicians Surgeon: TANG Anesthesia: PRADEEP Diagnosis Pre-Op Diagnosis: UNDESIRED FERTILITY Post-Op Diagnosis: SAME Procedure Findings: NORMAL UTERUS OVARIES AND TUBES [id number] Procedure(s): LSCOPE BTL VIA FALLOPE RING Complications: 0 Fluids Fluids: 800 CC NR IV Estimated Blood Loss: MINIMAL Dictated Date OP Note Dictated: March 10, 2018 Time OP Note Dictated: 08:23 Copies to: ALLIE BECKWITH MD, JOHN MD March 10, 2018 08:19
[2018-03-10] MEDS ORDERED: METOCLOPRAMIDE 10 MG/2 ML SDV IVP PRN (08:20)
[2018-03-10] MEDS ORDERED: HYDROmorphone HCL 2 MG TAB PO PRN (08:20)
[2018-03-10] MEDS ORDERED: HYDR2TAB4 PO (08:20)
[2018-03-10] MEDS ORDERED: IBUP800T37 PO (08:20)
--- NOTE | 2018-03-10 08:23 | OB/GYN Discharge Summary ---
Discharge Summary Reason for Hosp/Final Diag: (1) Status post laparoscopic procedure Hospital Course & Plan: LSCOPE BTL PERFORMED, NO COMPLICATIONS Lates Vital Signs Vital Signs Date Time Temp Pulse Resp B/P (MAP) Pulse Ox O2 Delivery O2 Flow Rate FiO2 03/10/18 06:30 97.5 88 16 111/77 (88) 95 Room Air Weight (Pounds): 194 Result Diagram: 03/10/18 0552 Condition: Improved Discharge: Home, Self Fdc Meds Active Scripts Ibuprofen (IBUPROFEN) 800 Mg Tablet, 1 TAB PO Q8H, #30 TAB 0 Refills Take with food every 8 hours. Prov:ALLIE STOLL MD 03/10/18 Hydromorphone Hcl (HYDROMORPHONE HCL) 2 Mg Tablet, 2-4 MG PO Q4H for PAIN, #20 TAB 0 Refills Prov:ALLIE STOLL MD 03/10/18 Reported Medications Omeprazole (OMEPRAZOLE) 20 Mg Tablet.dr 20 MG PO PRN, TAB 03/04/18 Acetaminophen 500 Mg Tab (ACETAMINOPHEN EXTRA STRENGTH) 500 Mg Tablet, 1000 MG PO PRN, TAB 03/04/18 Discontinued Scripts Ibuprofen (IBUPROFEN) 800 Mg Tablet, 1 TAB PO Q8H, #30 TAB 0 Refills Take with food every 8 hours. Prov:ALLIE STOLL MD 12/18/17 Follow up with: Dr. Stoll [phone] Follow up in: 2 wks PO Discharge Diet: As Tolerates Discharge Activity: Pelvic Rest Copies to: ALLIE STOLL MD, JOHN MD March 10, 2018 08:22
[2018-03-10] MEDS ORDERED: PROMETHAZINE 25 MG/ML 1 ML AMP ONE (08:41)
[2018-03-10] MEDS ORDERED: IBUPROFEN 800 MG TAB PO SCH (09:00)
[2018-03-10] MEDS ORDERED: HYDROmorphone HCL 2 MG TAB ONE (10:16)
--- NOTE | 2018-03-10 12:00 | OPERATIVE REPORT 1 ---
EVENT DATE: March 10, 2018 SURGEON: Lázaro Stoll MD ANESTHESIOLOGIST: Rafa Cedillo MD ANESTHESIA: General PREOPERATIVE DIAGNOSIS Undesired fertility. POSTOPERATIVE DIAGNOSIS Undesired fertility. PROCEDURE PERFORMED Laparoscopic bilateral tubal ligation via Falope ring. COMPLICATIONS None. FLUIDS 800 mL Normosol IV. ESTIMATED BLOOD LOSS Minimal. INDICATIONS The patient is 27-year-old female with undesired fertility. After discussion of risks and alternatives and alternative forms of contraception, patient desired to proceed with laparoscopic bilateral tubal ligation. She understands the risks of failure as well as well as risks of the procedure. FINDINGS Uterus 6 x 5 cm, normal uterus, ovaries and tubes. PROCEDURE After informed consent was obtained, the patient was taken to the Operating Room with the IV running and placed in the supine position where general anesthesia was obtained without difficulty. She was then placed in the [facility], examined under anesthsia with the above findings. She was then prepped and draped in the usual fashion, and her bladder was drained. A side out speculum was placed into the vagina. Cervix was grasped with a single tooth tenaculum. The uterus sounded to 9 cm. A #8 MONIQUE uterine manipulator was advanced into the uterine cavity to provide means to manipulate the uterus. The remainder of the instruments were removed from the vagina. The legs were lowered. Attention was then turned to the abdomen. 0.2 Naropin was infiltrated into the umbilicus. Skin incision was made with a scalpel. Veress needle advanced into the abdominal cavity, however, normal CO2 filling pressures were not noted on three different attempts. A small stab was made in the left upper quadrant, and a Veress needle advanced into the left upper quadrant with normal CO2 filling pressures. The 5 mm bladeless trocar was then advanced into the umbilical incision, and no injuries were noted at time of entry. The Veress needle was removed and the gas attached to the trocar. The 8 mm port was then placed after 0.2 Naropin was infiltrated in the skin. Ski incision was made with a scalpel, and advancing the 5 mm and the 8 mm trocar under direct visualization. Once this was placed, the Falope ring applicator was then advanced into the uterine cavity. The left tube was then gasped with a Falope ring and the Falope ring applied in the midportion of a tube that was knuckled. The same procedure was performed on the right. Midportion of tube was then grasped with the Falope ring applied, and the instrument was removed. The suction irritator was used to remove the gas from the abdomen. All instruments were removed from the abdominal cavity. The skin incisions were closed with 4-0 Maxon and Dermabond. There was a subcutaneous suture of 4-0 Maxon placed in the suprapubic port. Patient was taken out of the [facility], awakened from anesthesia. The MONIQUE was removed from the vagina. All instruments were correct x two. Patient was taken to Recovery Room in stable condition. [facility]
== END 2018-03-10 09:45 | disposition home or self-care (01) ==
LOC: OR 00:03
PROVIDERS: ATTEND Obstetrics & Gynecology
DX: Z30.2 Encounter for sterilization (principal); K21.9 Gastro-esophageal reflux disease without esophagitis
CPT/HCPCS: 36415; 58671; 84703; 85025; J0694; J1100; J1200; J2001; J2250; J2405; J2550; J2704; J2795; J3010; J7050

== ENCOUNTER 2018-10-23 13:38 | Emergency (ER) | payer SELFPAY ==
[2017-12-16 19:06] VITALS: Wt 84.8 kg
[~2018-10-23 13:38] MED LIST changes: -HYDR-4309 PO; +HYDR-653 PO
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
[2018-10-23] MEDS ORDERED: KETOROLAC 30 MG/ML VIAL IM ONE (14:00)
--- NOTE | 2018-10-23 15:00 | RADIOLOGY IMAGING REPORT ---
FACILITY: PATIENT NAME: Lesly Nur : 1990 MR: [id number] V: [id number] EXAM DATE: ORDERING PHYSICIAN: MARIIA CORREIA TECHNOLOGIST: Location: [facility] Patient: Lesly Nur : 1990 Visit/Account:[id number] Date of Sevice: 10/23/2018 EXAMINATION: CT facial bones without IV contrast HISTORY: Trauma and right jaw pain. COMPARISON: CT sinus from 01/11/2018. TECHNIQUE: Axial images were obtained from the superior aspect of the orbits through the inferior as pect of mandible. Coronal and sagittal reformatted images were obtained from the axial source data. N o IV contrast was administered. One of the following dose optimization techniques was utilized in the performance of this exam: Autom ated exposure control; adjustment of the mA and/or kV according to the patient's size; or use of an i terative reconstruction technique. Specific details can be referenced in the facility's radiology C T exam operational policy. FINDINGS: Soft Tissues: Negative. Mandible/TMJ: Negative. Maxilla/pterygoid plates: Negative. Zygoma/zygomatic arches: Negative. Orbits: Negative. Nasal bones/nasal septum: Negative. Frontal bones: Negative. Sinuses: Negative. Visualized brain: Negative. Incidental note is made of elongated bilateral styloid processes and ossification of the stylohyoid l igaments to the level of the hyoid bone. IMPRESSION: 1. No acute facial bone fracture. 2. Elongated bilateral styloid processes and ossification of the stylohyoid ligaments. This finding c an be seen with [place] syndrome, although it can also be an asymptomatic normal variant. Report Dictated By: Roya Jurado MD at 10/23/2018 2:38 PM Report E-Signed By: Roya Jurado MD at 10/23/2018 2:54 PM WSN:[id number]
[2018-10-23] MEDS ORDERED: NAPR500T31 PO (15:24)
[2018-10-23 16:00] VITALS: BP 138/68
== END 2018-10-23 16:15 | disposition home or self-care (01) ==
LOC: ER 14:03
DX: R68.84 Jaw pain (principal); Y04.2XXA Assault by strike against or bumped into by another person, initial encounter
CPT/HCPCS: 70486; 96372; 99284; J1885

== ENCOUNTER 2018-12-01 10:04 | Emergency (ER) | payer OTHER ==
[2017-12-16 19:06] VITALS: Wt 80.7 kg
[~2018-12-01 10:04] MED LIST changes: +NAPR500T31 PO
[2018-12-01] MEDS ORDERED: ACETAMINOPHEN 325 MG TAB PO ONE (10:50)
--- NOTE | 2018-12-01 11:01 | ER Report ---
History and Physical Time Seen By MD: 10:40 Hx. of Stated Complaint: pt slipped on ice HPI/ROS CHIEF COMPLAINT: Back pain, left side pain after fall HISTORY OF PRESENT ILLNESS: 27-year-old female was exiting her truck this morning at work when she stepped down and slipped on ice. She slipped back striking her buttocks and back against the truck stop and ultimately on the ground. She also hit the ground with her left shoulder and arm. She complains of pain in all these areas. Pain is severe. She is not have laceration or bleeding. She has no difficulty breathing, chest pain. She did not strike her head. She has no other injury. Patient is status post tubal ligation REVIEW OF SYSTEMS: Constitutional: No fever, no chills. Eyes: no blurred vision ENT: no dental injury Cardiovascular: No chest pain, no palpitations. Respiratory: No cough, no shortness of breath. Gastrointestinal: no abdominal pain, vomiting Genitourinary: no hematuria Musculoskeletal: above Skin: No rashes. Neurological: No headache. Remainder of the 14 system rev: Yes Allergies: Coded Allergies: adhesive (Verified Allergy, Severe, JEWELL SKINS/RIPS SKIN OFF , 03/04/18) mold (Verified Allergy, Severe, ANAPHYLAXIS, 03/04/18) Penicillins (Verified Allergy, Intermediate, HIVES/RASHES , 03/04/18) iodine (Verified Allergy, Intermediate, BLISTERS , 03/04/18) latex (Verified Allergy, Mild, RASH FOR WEEKS AFTER , 03/04/18) Home Meds Active Scripts Naproxen (NAPROXEN) 500 Mg Tablet, 500 MG PO BID, #30 TAB Prov:MARIIA CORREIA DO 10/23/18 Ibuprofen (IBUPROFEN) 800 Mg Tablet, 1 TAB PO Q8H, #30 TAB 0 Refills Take with food every 8 hours. Prov:ALLIE BECKWITH MD 03/10/18 Hydromorphone Hcl (HYDROMORPHONE HCL) 2 Mg Tablet, 2-4 MG PO Q4H for PAIN, #20 TAB 0 Refills Prov:ALLIE BECKWITH MD 03/10/18 Reported Medications Omeprazole (OMEPRAZOLE) 20 Mg Tablet.dr, 20 MG PO PRN, TAB 03/04/18 Acetaminophen 500 Mg Tab (ACETAMINOPHEN EXTRA STRENGTH) 500 Mg Tablet, 1000 MG PO PRN, TAB 03/04/18 Reviewed Nurses Notes: Yes Hx Smoking: Yes (FOR 6 MONTHS <1 A DAY AT AGE 15 ) Smoking Status: Former Smoker Exposure to Second Hand Smoke?: Yes (EVERYDAY ) Hx Substance Use Disorder: No Hx Alcohol Use: Yes (occ) Constitutional Vital Sign - Last 24 Hours 12/01/18 10:13 Temp 98.0 Pulse 98 B/P (MAP) 109/87 Pulse Ox 94 O2 Delivery Room Air Physical Exam General Appearance: The patient is alert, has no immediate need for airway protection and no signs of toxicity. Eyes: Pupils equal and round no pallor or injection. ENT, Mouth: Mucous membranes are moist. Respiratory: There are no retractions, lungs are clear to auscultation. Cardiovascular: Regular rate and rhythm. Gastrointestinal: Abdomen is soft and non tender, no masses Neurological: alert, oriented, no focal deficit Skin: Warm and dry, no rashes, no abrasions, no lacerations Musculoskeletal: Neck is supple non tender. Patient has tenderness to palpation approximately L1-5 and paraspinal. She also has bilateral sacral tenderness. She has no evidence of contusion, ecchymosis, abrasion. Patient has tenderness left shoulder to include before meals joint, clavicle, GH joint without step-off or deformity. She has no abrasion or contusion. Patient has tenderness left elbow. She is holding her arm is adducted and internally rotated. She states she cannot extend her elbow. Patient has full passive range of motion without crepitance or resistance. She has tenderness to palpation proximal forearm ulnar greater than radial. She has full range of motion and no tenderness in the hand. She has no abrasion or ecchymosis. She has mild fullness left proximal ulnar forearm. There are no other signs of injury. DIFFERENTIAL DIAGNOSIS: After history and physical exam differential diagnosis was considered for fracture, dislocation, pneumothorax , soft tissue injury Medical Decision Making Data Points Laboratory Hematology Test 12/01/18 10:50 Urine HCG, Qualitative Negative (NEGATIVE) Chemistry Test 12/01/18 10:50 Urine HCG, Qualitative Negative (NEGATIVE) Urinalysis Test 12/01/18 10:50 Urine HCG, Qualitative Negative (NEGATIVE) ED Course/Re-evaluation ED Course 27-year-old female presents with slip and fall on ice. She presents with multiple areas of pain, however, objective findings are limited to some mild forearm swelling. X-rays are unremarkable for fracture. We'll discharge with supportive treatment for contusions. Decision to Disposition Date: Dec 01, 2018 Decision to Disposition Time: 12:01 Depart Departure Latest Vital Signs Vital Signs Date Time Temp Pulse Resp B/P (MAP) Pulse Ox O2 Delivery O2 Flow Rate FiO2 12/01/18 10:13 98.0 98 109/87 94 Room Air Impression: Primary Impression: Multiple contusions Condition: Improved Disposition: HOME OR SELF-CARE Patient Instructions: Contusion in Adults (ED) Additional Instructions: As we discussed, your initial x-rays do not show any signs of fracture. You will have some bruising and discomfort. I recommend you use Tylenol, ibuprofen, ice as necessary for pain. Please return for new weakness or uncontrolled pain or any concerns. FUNMI BHAGAT MD Dec 01, 2018 11:01
[2018-12-01 12:00] VITALS: BP 108/82
--- NOTE | 2018-12-01 12:13 | RADIOLOGY IMAGING REPORT ---
FACILITY: [facility] PATIENT NAME: Lesly Nur : 1990 MR: [id number] V: [id number] EXAM DATE: ORDERING PHYSICIAN: FUNMI BHAGAT TECHNOLOGIST: Location: [facility] Patient: Lesly Nur : 1990 Visit/Account:[id number] Date of Sevice: 12/01/2018 ELBOW 2 VIEW LEFT Indication: Left elbow pain after fall on ice today. Comparison: None Available Findings: AP and lateral view of the left elbow. No fracture or dislocation. No joint effusion. No bony lesions or degenerative change. Soft tissues are unremarkable. IMPRESSION: 1. No acute osseous abnormality of the left elbow. Report Dictated By: Wayne Mosley at 12/01/2018 12:07 PM Report E-Signed By: Wayne Mosley at 12/01/2018 12:08 PM WSN:[id number]
--- NOTE | 2018-12-01 12:14 | RADIOLOGY IMAGING REPORT ---
FACILITY: [facility] PATIENT NAME: Lesly Nur : 1990 MR: [id number] V: [id number] EXAM DATE: ORDERING PHYSICIAN: FUNMI BHAGAT TECHNOLOGIST: Location: [facility] Patient: Lesly Nur : 1990 Visit/Account:[id number] Date of Sevice: 12/01/2018 FOREARM LEFT Indication: Left forearm pain after fall on ice today. Comparison: None available Findings: Two views of the left forearm show no evidence of fracture, dislocation, or acute osseous abnormality . No bony lesions or periosteal abnormality. There is no focal soft tissue abnormality. No evidence of radiopaque foreign body. IMPRESSION: 1.No acute osseous abnormality left forearm Report Dictated By: Wayne Mosley at 12/01/2018 12:08 PM Report E-Signed By: Wayne Mosley at 12/01/2018 12:09 PM WSN:[id number]
--- NOTE | 2018-12-01 12:15 | RADIOLOGY IMAGING REPORT ---
FACILITY: [facility] PATIENT NAME: Lesly Nur : 1990 MR: [id number] V: [id number] EXAM DATE: ORDERING PHYSICIAN: FUNMI BHAGAT TECHNOLOGIST: Location: [facility] Patient: Lesly Nur : 1990 Visit/Account:[id number] Date of Sevice: 12/01/2018 SHOULDER MIN 2 VIEWS LEFT Indication: Left shoulder pain after fall on ice today. Comparison: Unavailable Findings: 4 views of the left shoulder. No fracture or dislocation. No bony lesions. No degenerative changes. S oft tissues are unremarkable. IMPRESSION: 1. No acute osseous abnormality left shoulder. Report Dictated By: Wayne Mosley at 12/01/2018 12:10 PM Report E-Signed By: Wayne Mosley at 12/01/2018 12:11 PM WSN:[id number]
--- NOTE | 2018-12-01 12:19 | RADIOLOGY IMAGING REPORT ---
FACILITY: [facility] PATIENT NAME: Lesly Nur : 1990 MR: [id number] V: [id number] EXAM DATE: ORDERING PHYSICIAN: FUNMI BHAGAT TECHNOLOGIST: Location: [facility] Patient: Lesly Nur : 1990 Visit/Account:[id number] Date of Sevice: 12/01/2018 L-SPINE 2 OR 3 VIEW INDICATION: Back pain after fall on ice today. COMPARISON: None available FINDINGS: There are 5 nonrib-bearing lumbar vertebral bodies. The vertebral bodies are aligned. No compression fractures, bony lesions or spondylolysis. No degenerative changes. Endplates are maintain ed. Pedicles are well seen. Soft tissues are unremarkable. There is a small retained densities seen i n each side of the pelvis soft tissues which may represent tubal ligation clips. IMPRESSION: No acute abnormality. Report Dictated By: Wayne Mosley at 12/01/2018 12:11 PM Report E-Signed By: Wayne Mosley at 12/01/2018 12:14 PM WSN:[id number]
--- NOTE | 2018-12-01 12:20 | RADIOLOGY IMAGING REPORT ---
FACILITY: [facility] PATIENT NAME: Lesly Nur : 1990 MR: [id number] V: [id number] EXAM DATE: ORDERING PHYSICIAN: FUNMI BHAGAT TECHNOLOGIST: Location: [facility] Patient: Lesly Nur : 1990 Visit/Account:[id number] Date of Sevice: 12/01/2018 SACRUM & COCCYX Indication: Sacrococcygeal pain after fall on ice today. Comparison: None available. Findings: 3 views of the sacrum and coccyx. No fracture or dislocation. The sacral anai are intact and appear s ymmetric. SI joints are unremarkable. No bony lesions. Lower lumbar spine is unremarkable. Soft tissu es are unremarkable. There is a small retained opacities seen in each side of the pelvis which may re present tubal ligation clips. IMPRESSION: 1. No acute osseous abnormality of the sacrum or coccyx. Report Dictated By: Wayne Mosley at 12/01/2018 12:14 PM Report E-Signed By: Wayne Mosley at 12/01/2018 12:15 PM WSN:[id number]
== END 2018-12-01 12:37 | disposition home or self-care (01) ==
LOC: ER 11:01
DX: S50.12XA Contusion of left forearm, initial encounter (principal); W00.0XXA Fall on same level due to ice and snow, initial encounter
CPT/HCPCS: 72100; 72220; 81025; 99284